=== PATIENT | male | born 1965 | race Caucasian/White ===

== ENCOUNTER 2021-02-06 05:04 | Emergency (ER) | payer OTHER, SELFPAY ==
[2021-02-06 05:11] VITALS: BP 147/83; PULSE 79; RESP 14; TEMP 36.9; O2SAT 100; BMI 40.7
--- NOTE | 2021-02-06 05:40 | CTR_ITS ---
PROCEDURE INFORMATION: Exam: CT Abdomen And Pelvis With Contrast Exam date and time: 02/06/2021 5:40 AM Age: 55 years old Clinical indication: Bloating; Abdominal pain; Generalized; Additional info: Abd pain, distension, AMS TECHNIQUE: Imaging protocol: Computed tomography of the abdomen and pelvis with contrast. Radiation optimization: All CT scans at this facility use at least one of these dose optimization techniques: automated exposure control; mA and/or kV adjustment per patient size (includes targeted exams where dose is matched to clinical indication); or iterative reconstruction. Contrast material: OMNI 300; Contrast volume: 95 ml; Contrast route: INTRAVENOUS (IV); COMPARISON: CR XR chest 1V portable [id number] 02/06/2021 6:05 AM RADIATION DOSE METRICS: Total DLP (mGy-cm): 2034.47 FINDINGS: Mediastinal space: Small hiatal hernia. Liver: Fatty liver. Gallbladder and bile ducts: Status post cholecystectomy. Pancreas: No ductal dilation. Spleen: No splenomegaly. Adrenal glands: Normal. No mass. Kidneys and ureters: Prior postsurgical changes of the left kidney. No hydronephrosis. Stomach and bowel: Minimal colonic diverticulosis without findings of diverticulitis. Minimal scattered air-fluid levels noted in nondilated loops small bowel. No abrupt transition point. There is moderate gastric distention. Appendix: The appendix is not identified. No focal inflammation in the right lower quadrant. Intraperitoneal space: No free air. No significant fluid collection. Vasculature: Atherosclerotic changes of the aorta. No aneurysm. Lymph nodes: No enlarged lymph nodes. Urinary bladder: Unremarkable as visualized. Reproductive: Unremarkable as visualized. Bones/joints: Multilevel degenerative changes. Chronic appearing left inferior pubic ramus fracture. Multilevel degenerative changes of the lumbar spine. Chronic appearing right rib fractures. Soft tissues: Unremarkable. Other findings: Examination is limited by motion artifact. CT/CT abdomen pelvis w con* [id number] IMPRESSION: Minimal scattered air-fluid levels noted in nondilated loops small bowel. No abrupt transition point. There is moderate gastric distention. Findings may be seen with gastroenteritis in the appropriate clinical context. Radiation Dose CTDIVOL = (mGy): DLP = 2034.47 (mGy-cm)
--- NOTE | 2021-02-06 05:40 | XRR_ITS ---
PROCEDURE INFORMATION: Exam: XR Chest Exam date and time: 02/06/2021 5:40 AM Age: 55 years old Clinical indication: Shortness of breath; Additional info: SOB, AMS, abd pain TECHNIQUE: Imaging protocol: XR of the chest. Views: 1 view. COMPARISON: No relevant prior studies available. FINDINGS: Lungs: No CHF/pulmonary edema. Poor inspiration somewhat limits evaluation, especially of the lung bases. 4-5 mm calcified granuloma in the right lower lung. Visible lungs otherwise appear essentially clear. Pleural spaces: No visible pneumothorax. No definite pleural fluid. Heart/Mediastinum: Heart size is probably upper range of normal. Bones/joints: No significant acute finding. Gastrointestinal tract: There appears to be some gastric distention XR/XR chest 1V portable [id number] IMPRESSION: 1. No definite CHF or pneumonia 2. Other findings discussed above.
--- NOTE | 2021-02-06 05:40 | CTR_ITS ---
PROCEDURE INFORMATION: Exam: CT Head Without Contrast Exam date and time: 02/06/2021 5:40 AM Age: 55 years old Clinical indication: Altered mental status/memory loss; Confusion or disorientation; Additional info: AMS TECHNIQUE: Imaging protocol: Computed tomography of the head without contrast. Radiation optimization: All CT scans at this facility use at least one of these dose optimization techniques: automated exposure control; mA and/or kV adjustment per patient size (includes targeted exams where dose is matched to clinical indication); or iterative reconstruction. COMPARISON: No relevant prior studies available. RADIATION DOSE METRICS: Total DLP (mGy-cm): 970.18 FINDINGS: Brain: No acute intracranial hemorrhage or mass effect. No definite acute infarct by CT. MRI could be more sensitive/specific for detection, as clinically directed. Cerebral ventricles: Ventricle size is normal for age. Paranasal sinuses: Included paranasal sinuses are essentially clear. Mastoid air cells: No significant acute finding. Bones/joints: No definite acute skull fracture. CT/CT head wo con* [id number] IMPRESSION: 1. No acute intracranial hemorrhage or mass effect. 2. No definite acute infarct by CT, see above. 3. Other findings discussed above. Radiation Dose CTDIVOL = (mGy): DLP = 970.18 (mGy-cm)
--- NOTE | 2021-02-06 05:40 | ECG_ITS ---
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 Measurements Intervals [place] Rate: 80 P: 59 OR: 168 QRS: 63 QRSD: 92 T: 34 QT: 347 QTc: 401 Interpretive Statements SINUS RHYTHM LOW QRS VOLTAGE IN PRECORDIAL LEADS [QRS DEFLECTION < 1.0 mV IN CHEST LEADS] No previous ECG available for comparison Electronically Signed On 02-06-2021 18:10:05 CDT by Alex Donato M.D. [email or web address]
[2021-02-06 05:49] LABS: Basophils # 0.1 10^3/uL (0.0-0.1); Basophils % 0.7 %; Eosinophils # 0.3 10^3/uL (0.0-0.8); Eosinophils % 2.7 %; Hematocrit 44.5 % (42.0-52.0); Hemoglobin 14.7 g/dL (11.7-16.6); Lymphocytes # 1.7 10^3/uL (0.8-4.8); Mean Corpuscular Hemoglobin 29.3 pg (28.0-34.0); Mean Corpuscular Volume 88.8 fL (80-94); Monocytes # 0.9 10^3/uL (0.2-0.9); Neutrophils # 6.92 10^3/uL (1.8-7.7); Neutrophils % 70.3 %; Nucleated Red Blood Cells % 0 %; Platelet Count 278 10^3/cmm (130-400); Red Blood Count 5.01 10^6/uL (4.1-5.3); Red Cell Distribution Width 13.7 % (12.1-15.1); White Blood Count 9.9 10^3/uL (4.0-10.0)
[2021-02-06] MEDS: sodium chloride 0.9% 1,000 ML 999 ML IV (05:58)
[2021-02-06 06:05] LABS: ABG PCO2 50.6 mmHg (35-45); ABG PH Result 7.37 (7.35-7.45); Base Excess ABG 2.8 mmol/L (-2.0-2.0); Blood Gas Allen Test Pos; Blood Gas Sample Site Radial, right; Blood Gas Sample Type Arterial; Carboxyhemoglobin 1.6 %THgb (0.4-20.1); HCO3 ABG 29.1 mmol/L (22-26); HGB O2 Sat 92.5 % (95-100); Methemoglobin 0.4 % (0.4-1.5); Oxygen Device ROOM AIR; PO2 ABG 70.2 mmHg (80.0-100.0); Total Hemoglobin 13.7 g/dL (14-18)
[2021-02-06 06:16] LABS: Alanine Aminotransferase 33 U/L (0-41); Albumin Level 4.6 g/dL (3.5-5.2); Alkaline Phosphatase 129 IU/L (40-130); Aspartate Amino Transferase 33 U/L (0-40); Blood Urea Nitrogen 23 mg/dL (6-20); Calcium 9.6 mg/dL (8.5-10.5); Carbon Dioxide 27 mmol/L (22-29); Chloride 92 mmol/L (98-107); Globulin 3.1 g/dL (1.3-4.6); Glomerular Filtration Rate 31.1 mL/min (90-130); Glucose 119 mg/dL (65-115); NT Pro B Type Natriuretic Pept 18 pg/mL (0-125); Osmolality Calculated 285 mOsm/kg (285-295); Sodium 135 mmol/L (136-145); Total Bilirubin 0.6 mg/dL (0.15-1.2); Total Protein 7.7 g/dL (6.6-8.7)
[2021-02-06 06:18] LABS: Slide Review Slide Review Perform
[2021-02-06 06:21] LABS: Ammonia 20 umol/L (16-60); Lactic Sepsis W/Reflex 2.4 mmol/L (0.5-2.2)
[2021-02-06 06:24] LABS: Anion Gap 21.2 (5-19); Potassium 5.2 mmol/L (3.5-5.1)
[2021-02-06] MEDS: iohexol 300 mg/mL 100 mL Btl IV (06:28)
[2021-02-06 06:30] LABS: D Dimer 0.38 ug/mIFEU (0-0.59)
[2021-02-06 06:46] VITALS: BP 138/77; PULSE 83; RESP 15; O2SAT 96
[2021-02-06 06:55] LABS: Alcohol Level < 10 mg/dL (0-10)
[2021-02-06 07:24] LABS: Creatine Phosphokinase 1055 U/L (39-308)
[2021-02-06 07:45] LABS: Reflex Lactate Order REFLEX LACTIC ORDERD
[2021-02-06 08:00] VITALS: BP 104/61; PULSE 72; RESP 15; O2SAT 93
[2021-02-06 08:37] LABS: Add Urine Microscopic? YES; Bacteria Urine TRACE /hpf; Bilirubin Urine Neg (Negative); Blood Urine Neg (Negative); Glucose Urine UA Norm (Normal); Hyaline Casts Urine 0-4 /lpf; Ketones Urine Negative (Negative); Leukocyte Esterase Urine 2+ (Negative); Nitrate Urine Negative (Negative); Protein Urine Neg (Negative); Specific Gravity, Urine 1.015 (1.005-1.030); Urine Appearance SL Hazy (CLEAR); Urine Color Yellow (Yellow); Urobilinogen Urine Norm (Negative); WBC Urine 15-25 /hpf (0-5); pH Urine 5 (5-7)
[2021-02-06 08:38] LABS: Add Urine Culture? Yes; Amphetamines Screen Urine Negative (Negative); Barbiturates Screen Urine Negative (Negative); Benzodiazepines Screen Urine Negative (Negative); Cocaine Screen Urine Negative (Negative); Opiate Screen Urine Positive (Negative); PCP Screen Urine Negative (Negative); THC Screen Urine Negative (Negative)
[2021-02-06 09:17] VITALS: BP 135/82; PULSE 70; RESP 14; O2SAT 94
[2021-02-06] MEDS: naloxone 0.4 mg/ml SDV IVP (09:34)
[2021-02-06] MEDS: cefTRIAXone 1,000 MG in sodium chloride 0.9% (plus) 50 ML 100 MG IV (09:34)
--- NOTE | 2021-02-06 09:49 | ED_ITS ---
HPI - Altered Mental Status General: Chief Complaint: Shortness of Breath/Dyspnea Stated Complaint: DECREASED LOC/ ABDOMINAL PAIN Time Seen by Provider: 02/06/21 05:19 History of Present Illness: HPI narrative: 55-year-old diabetic male. He presents with an alteration in his mental status, combined with vomiting. [place] He had stated that he left his BiPAP machine at home. He awoke vomiting sometime in the morning, and was very lethargic. EMS were called. They found him to be lethargic. He vomited a couple of more times. This has improved, but his lethargy remains. He answers simple questions, but falls asleep in between. MD complaint: altered mental status and decreased responsiveness Onset (ago): hour(s) Timing confirmed by: other Severity: moderate Consistency of symptoms: Waxing and Waning Context: diabetes and other Treatments prior to arrival: IV fluid and oxygen Review of Systems General: Reports: ROS unobtainable due to medical condition and ROS unobtainable due to mental status Const: Denies: fever(s) Card: Denies: chest pain Resp: Reports: dyspnea; Denies: non-productive cough GI: Reports: abdominal pain, nausea and vomiting Neuro: Reports: confusion and behavioral changes Physical Exam Const: EXAM LIMITATIONS: altered mental status GENERAL APPEARANCE: lethargic NUTRITIONAL APPEARANCE: obese ORIENTATION/CONSCIOUSNESS: Yes lethargic HENMT: COMMON NORMALS: normocephalic and atraumatic HEAD & SCALP: normocephalic and atraumatic Eye: COMMON NORMALS: Equal, round and reactive pupils present and EOMs intact bilaterally PUPIL: Yes Equal, round and reactive pupils present Chest: COMMONS NORMALS: normal inspection of the chest Resp: COMMON NORMALS: normal respiratory effort, No use of accessory muscles and percussion normal PERCUSSION: percussion normal Cardio: COMMON NORMALS: regular rate and regular rhythm RATE: regular rate RHYTHM: regular rhythm GI: INSPECTION: Yes abdominal distension PALPATION: Yes Tenderness to palpation present (GI) (Diffuse) and Yes Guarding due to palpation present (GI) Neuro: NGUYEN COMA SCALE: document GCS findings Nguyen coma scale eye opening: To sound [place] coma scale verbal response: Confused Nguyen coma scale motor response: Obey commands Nguyen coma scale total score: 13 SENSORIUM/ORIENTATION: Yes lethargic CRANIAL NERVES: Yes CN normal except as noted SPEECH: abnormal speech Details: slurred SENSORY EXAM: Yes extremities MOTOR EXAM: 5/5 motor strength present throughout Course Vital Signs: Vital signs: Vital Signs Temperature 98.5 F 02/06/21 05:11 Pulse Rate 70 02/06/21 09:17 Respiratory Rate 14 02/06/21 09:17 Blood Pressure 135/82 02/06/21 09:17 Pulse Oximetry 94 02/06/21 09:17 MDM - Altered Mental Status MDM Narrative: Medical decision making narrative: Patient has been very lethargic on exam. He awakens to voice, and answers simple questions appropriately. He then falls back asleep. He is maintaining his oxygen level on room air. ABG shows mild respiratory acidosis, but appears compensated. CBC is normal. Creatinine is 2.2. BUN is 23. Potassium 5.2. No prior labs to compare to. His alcohol is negative. Ammonia is normal. His urine tox shows positive for opiates. He has a urinary tract infection as well by urinalysis. His head CT is normal. His belly CT, done because of distention and tenderness, shows gastric distention with mild distention of loops suggestive of gastr oenteritis which fits with his history of vomiting. After urine drug screen came back positive for opiates, 0.4 mg of Narcan was given. The patient immediately woke, was appropriate, remembers all prior events, and is not confused. His voice is no longer slurred. He is received a liter of fluids. He is received Rocephin for his urinary tract infection. His hyperkalemia is not severe. He will be allowed home with oral hydration, staying cool, repeat labs in 2 days, and to hold his Dilaudid which he takes every day for the next 24 hours at least. Lab Data: Labs: Lab Results 02/06/21 02/06/21 02/06/21 Range/Units 05:30 05:30 05:30 WBC 9.9 (4.0-10.0) 10^3/ uL RBC 5.01 (4.1-5.3) 10^6/u L Hgb 14.7 (11.7-16.6) g/dL Hct 44.5 (42.0-52.0) % MCV 88.8 (80-94) fL MCH 29.3 (28.0-34.0) pg MCHC 33.0 (30.0-36.0) g/dL RDW 13.7 (12.1-15.1) % Plt Count 278 (130-400) 10^3/c mm MPV 10.0 (7.4-10.4) fL Neut % (Auto) 70.3 % Lymph % (Auto) 17.0 % [place] % (Auto) 9.0 % Eos % (Auto) 2.7 % Baso % (Auto) 0.7 % Neut # (Auto) 6.92 (1.8-7.7) 10^3/u L Lymph # (Auto) 1.7 (0.8-4.8) 10^3/u L [place] # (Auto) 0.9 (0.2-0.9) 10^3/u L Eos # (Auto) 0.3 (0.0-0.8) 10^3/u L Baso # (Auto) 0.1 (0.0-0.1) 10^3/u L Nucleated RBC % (a uto) 0 % Nucleated RBCs # 0.0 /100WBC D-Dimer (0-0.59) ug/mIFE U Specimen Type Sample Site ABG pH (7.35-7.45) ABG pCO2 (35-45) mmHg ABG pO2 (80.0-100.0) mmH g ABG HCO3 (22-26) mmol/L ABG Base Excess (-2.0-2.0) mmol/ L Felix Test Hematocrit (42-52) % Hgb O2 Saturation (95-100) % Carboxyhemoglobin (0.4-20.1) %THgb Methemoglobin (0.4-1.5) % Total Hemoglobin (14-18) g/dL O2 Delivery Device [employer] Teacher ID Sodium 135 L (136-145) mmol/L Potassium 5.2 H (3.5-5.1) mmol/L Chloride 92 L (98-107) mmol/L Carbon Dioxide 27 (22-29) mmol/L Anion Gap 21.2 H (5-19) BUN 23 H (6-20) mg/dL Creatinine 2.2 H (0.7-1.2) mg/dL GFR Calculation 31.1 L (90-130) mL/min Glucose 119 H (65-115) mg/dL Calculated Osmolal ity 285 (285-295) mOsm/k g Lactic Acid (0.5-2.2) mmol/L Lactic Acid (Sepsi s) (0.5-2.2) mmol/L Calcium 9.6 (8.5-10.5) mg/dL Total Bilirubin 0.6 (0.15-1.2) mg/dL AST 33 (0-40) U/L ALT 33 (0-41) U/L Alkaline Phosphata se 129 (40-130) IU/L Ammonia (16-60) umol/L Creatine Kinase (39-308) U/L NT-Pro-B Natriuret Pep 18 (0-125) pg/mL Total Protein 7.7 (6.6-8.7) g/dL Albumin 4.6 (3.5-5.2) g/dL Globulin 3.1 (1.3-4.6) g/dL Urine Color (Yellow) Urine Appearance (CLEAR) Urine pH (5-7) Ur Specific Gravit y (1.005-1.030) Urine Protein (Negative) Urine Glucose (UA) (Normal) Urine Ketones (Negative) Urine Blood (Negative) Urine Nitrate (Negative) Urine Bilirubin (Negative) Urine Urobilinogen (Negative) mg/dL Ur Leukocyte Lesa ase (Negative) Urine RBC (0-2) /hpf Urine WBC (0-5) /hpf Ur Squamous Epith Cells (0-5) /hpf Amorphous Sediment Urine Bacteria (NONE) /hpf Hyaline Casts /lpf Urine Opiates Scre en (Negative) ng/mL Ur Barbiturates Sc reen (Negative) ng/mL Ur Phencyclidine S crn (Negative) ng/mL Ur Amphetamines Sc reen (Negative) ng/mL U Benzodiazepines Scrn (Negative) ng/mL Urine Cocaine Scre en (Negative) ng/mL U Marijuana (THC) Screen (Negative) ng/mL Ethyl Alcohol < 10 (0-10) mg/dL 02/06/21 02/06/21 02/06/21 Range/Units 05:30 05:45 05:45 WBC (4.0-10.0) 10^3/ uL RBC (4.1-5.3) 10^6/u L Hgb (11.7-16.6) g/dL Hct (42.0-52.0) % MCV (80-94) fL MCH (28.0-34.0) pg MCHC (30.0-36.0) g/dL RDW (12.1-15.1) % Plt Count (130-400) 10^3/c mm MPV (7.4-10.4) fL Neut % (Auto) % Lymph % (Auto) % [place] % (Auto) % Eos % (Auto) % Baso % (Auto) % Neut # (Auto) (1.8-7.7) 10^3/u L Lymph # (Auto) (0.8-4.8) 10^3/u L [place] # (Auto) (0.2-0.9) 10^3/u L Eos # (Auto) (0.0-0.8) 10^3/u L Baso # (Auto) (0.0-0.1) 10^3/u L Nucleated RBC % (a uto) % Nucleated RBCs # /100WBC D-Dimer (0-0.59) ug/mIFE U Specimen Type Sample Site ABG pH (7.35-7.45) ABG pCO2 (35-45) mmHg ABG pO2 (80.0-100.0) mmH g ABG HCO3 (22-26) mmol/L ABG Base Excess (-2.0-2.0) mmol/ L Felix Test Hematocrit (42-52) % Hgb O2 Saturation (95-100) % Carboxyhemoglobin (0.4-20.1) %THgb Methemoglobin (0.4-1.5) % Total Hemoglobin (14-18) g/dL O2 Delivery Device [employer] Teacher ID Sodium (136-145) mmol/L Potassium (3.5-5.1) mmol/L Chloride (98-107) mmol/L Carbon Dioxide (22-29) mmol/L Anion Gap (5-19) BUN (6-20) mg/dL Creatinine (0.7-1.2) mg/dL GFR Calculation (90-130) mL/min Glucose (65-115) mg/dL Calculated Osmolal ity (285-295) mOsm/k g Lactic Acid 2.4 H (0.5-2.2) mmol/L Lactic Acid (Sepsi s) (0.5-2.2) mmol/L Calcium (8.5-10.5) mg/dL Total Bilirubin (0.15-1.2) mg/dL AST (0-40) U/L ALT (0-41) U/L Alkaline Phosphata se (40-130) IU/L Ammonia 20 (16-60) umol/L Creatine Kinase 1055 H* (39-308) U/L NT-Pro-B Natriuret Pep (0-125) pg/mL Total Protein (6.6-8.7) g/dL Albumin (3.5-5.2) g/dL Globulin (1.3-4.6) g/dL Urine Color (Yellow) Urine Appearance (CLEAR) Urine pH (5-7) Ur Specific Gravit y (1.005-1.030) Urine Protein (Negative) Urine Glucose (UA) (Normal) Urine Ketones (Negative) Urine Blood (Negative) Urine Nitrate (Negative) Urine Bilirubin (Negative) Urine Urobilinogen (Negative) mg/dL Ur Leukocyte Lesa ase (Negative) Urine RBC (0-2) /hpf Urine WBC (0-5) /hpf Ur Squamous Epith Cells (0-5) /hpf Amorphous Sediment Urine Bacteria (NONE) /hpf Hyaline Casts /lpf Urine Opiates Scre en (Negative) ng/mL Ur Barbiturates Sc reen (Negative) ng/mL Ur Phencyclidine S crn (Negative) ng/mL Ur Amphetamines Sc reen (Negative) ng/mL U Benzodiazepines Scrn (Negative) ng/mL Urine Cocaine Scre en (Negative) ng/mL U Marijuana (THC) Screen (Negative) ng/mL Ethyl Alcohol (0-10) mg/dL 02/06/21 02/06/21 02/06/21 Range/Units 06:00 06:00 08:03 WBC (4.0-10.0) 10^3/ uL RBC (4.1-5.3) 10^6/u L Hgb (11.7-16.6) g/dL Hct (42.0-52.0) % MCV (80-94) fL MCH (28.0-34.0) pg MCHC (30.0-36.0) g/dL RDW (12.1-15.1) % Plt Count (130-400) 10^3/c mm MPV (7.4-10.4) fL Neut % (Auto) % Lymph % (Auto) % [place] % (Auto) % Eos % (Auto) % Baso % (Auto) % Neut # (Auto) (1.8-7.7) 10^3/u L Lymph # (Auto) (0.8-4.8) 10^3/u L [place] # (Auto) (0.2-0.9) 10^3/u L Eos # (Auto) (0.0-0.8) 10^3/u L Baso # (Auto) (0.0-0.1) 10^3/u L Nucleated RBC % (a uto) % Nucleated RBCs # /100WBC D-Dimer 0.38 (0-0.59) ug/mIFE U Specimen Type Arterial Sample Site Radial, right ABG pH 7.37 (7.35-7.45) ABG pCO2 50.6 H (35-45) mmHg ABG pO2 70.2 L (80.0-100.0) mmH g ABG HCO3 29.1 H (22-26) mmol/L ABG Base Excess 2.8 H (-2.0-2.0) mmol/ L Felix Test Pos Hematocrit 42.0 (42-52) % Hgb O2 Saturation 92.5 L (95-100) % Carboxyhemoglobin 1.6 (0.4-20.1) %THgb Methemoglobin 0.4 (0.4-1.5) % Total Hemoglobin 13.7 L (14-18) g/dL O2 Delivery Device Room air [employer] Teacher ID [email or web address] Sodium (136-145) mmol/L Potassium (3.5-5.1) mmol/L Chloride (98-107) mmol/L Carbon Dioxide (22-29) mmol/L Anion Gap (5-19) BUN (6-20) mg/dL Creatinine (0.7-1.2) mg/dL GFR Calculation (90-130) mL/min Glucose (65-115) mg/dL Calculated Osmolal ity (285-295) mOsm/k g Lactic Acid (0.5-2.2) mmol/L Lactic Acid (Sepsi s) 1.0 (0.5-2.2) mmol/L Calcium (8.5-10.5) mg/dL Total Bilirubin (0.15-1.2) mg/dL AST (0-40) U/L ALT (0-41) U/L Alkaline Phosphata se (40-130) IU/L Ammonia (16-60) umol/L Creatine Kinase (39-308) U/L NT-Pro-B Natriuret Pep (0-125) pg/mL Total Protein (6.6-8.7) g/dL Albumin (3.5-5.2) g/dL Globulin (1.3-4.6) g/dL Urine Color (Yellow) Urine Appearance (CLEAR) Urine pH (5-7) Ur Specific Gravit y (1.005-1.030) Urine Protein (Negative) Urine Glucose (UA) (Normal) Urine Ketones (Negative) Urine Blood (Negative) Urine Nitrate (Negative) Urine Bilirubin (Negative) Urine Urobilinogen (Negative) mg/dL Ur Leukocyte Lesa ase (Negative) Urine RBC (0-2) /hpf Urine WBC (0-5) /hpf Ur Squamous Epith Cells (0-5) /hpf Amorphous Sediment Urine Bacteria (NONE) /hpf Hyaline Casts /lpf Urine Opiates Scre en (Negative) ng/mL Ur Barbiturates Sc reen (Negative) ng/mL Ur Phencyclidine S crn (Negative) ng/mL Ur Amphetamines Sc reen (Negative) ng/mL U Benzodiazepines Scrn (Negative) ng/mL Urine Cocaine Scre en (Negative) ng/mL U Marijuana (THC) Screen (Negative) ng/mL Ethyl Alcohol (0-10) mg/dL 02/06/21 02/06/21 Range/Units 08:15 08:15 WBC (4.0-10.0) 10^3/ uL RBC (4.1-5.3) 10^6/u L Hgb (11.7-16.6) g/dL Hct (42.0-52.0) % MCV (80-94) fL MCH (28.0-34.0) pg MCHC (30.0-36.0) g/dL RDW (12.1-15.1) % Plt Count (130-400) 10^3/c mm MPV (7.4-10.4) fL Neut % (Auto) % Lymph % (Auto) % [place] % (Auto) % Eos % (Auto) % Baso % (Auto) % Neut # (Auto) (1.8-7.7) 10^3/u L Lymph # (Auto) (0.8-4.8) 10^3/u L [place] # (Auto) (0.2-0.9) 10^3/u L Eos # (Auto) (0.0-0.8) 10^3/u L Baso # (Auto) (0.0-0.1) 10^3/u L Nucleated RBC % (a uto) % Nucleated RBCs # /100WBC D-Dimer (0-0.59) ug/mIFE U Specimen Type Sample Site ABG pH (7.35-7.45) ABG pCO2 (35-45) mmHg ABG pO2 (80.0-100.0) mmH g ABG HCO3 (22-26) mmol/L ABG Base Excess (-2.0-2.0) mmol/ L Felix Test Hematocrit (42-52) % Hgb O2 Saturation (95-100) % Carboxyhemoglobin (0.4-20.1) %THgb Methemoglobin (0.4-1.5) % Total Hemoglobin (14-18) g/dL O2 Delivery Device [employer] Teacher ID Sodium (136-145) mmol/L Potassium (3.5-5.1) mmol/L Chloride (98-107) mmol/L Carbon Dioxide (22-29) mmol/L Anion Gap (5-19) BUN (6-20) mg/dL Creatinine (0.7-1.2) mg/dL GFR Calculation (90-130) mL/min Glucose (65-115) mg/dL Calculated Osmolal ity (285-295) mOsm/k g Lactic Acid (0.5-2.2) mmol/L Lactic Acid (Sepsi s) (0.5-2.2) mmol/L Calcium (8.5-10.5) mg/dL Total Bilirubin (0.15-1.2) mg/dL AST (0-40) U/L ALT (0-41) U/L Alkaline Phosphata se (40-130) IU/L Ammonia (16-60) umol/L Creatine Kinase (39-308) U/L NT-Pro-B Natriuret Pep (0-125) pg/mL Total Protein (6.6-8.7) g/dL Albumin (3.5-5.2) g/dL Globulin (1.3-4.6) g/dL Urine Color Yellow (Yellow) Urine Appearance Sl hazy (CLEAR) Urine pH 5 (5-7) Ur Specific Gravit y 1.015 (1.005-1.030) Urine Protein Neg (Negative) Urine Glucose (UA) Norm (Normal) Urine Ketones Negative (Negative) Urine Blood Neg (Negative) Urine Nitrate Negative (Negative) Urine Bilirubin Neg (Negative) Urine Urobilinogen Norm (Negative) mg/dL Ur Leukocyte Lesa ase 2+ H (Negative) Urine RBC None (0-2) /hpf Urine WBC 15-25 H (0-5) /hpf Ur Squamous Epith Cells 5-10 H (0-5) /hpf Amorphous Sediment Not Reportable Urine Bacteria Trace (NONE) /hpf Hyaline Casts 0-4 H /lpf Urine Opiates Scre en Positive H (Negative) ng/mL Ur Barbiturates Sc reen Negative (Negative) ng/mL Ur Phencyclidine S crn Negative (Negative) ng/mL Ur Amphetamines Sc reen Negative (Negative) ng/mL U Benzodiazepines Scrn Negative (Negative) ng/mL Urine Cocaine Scre en Negative (Negative) ng/mL U Marijuana (THC) Screen Negative (Negative) ng/mL Ethyl Alcohol (0-10) mg/dL Discharge Plan Discharge Patient Disposition: Home Clinical Impression: Acute kidney injury, Acute dehydration Urinary tract infection Qualifiers: Urinary tract infection type: acute cystitis Hematuria presence: without hematuria Qualified Code(s): N30.00 - Acute cystitis without hematuria Condition: Stable Prescriptions: New Zofran 4 mg tablet 4 mg PO Q6H PRN (Reason: nausea and vomiting) Qty: 10 RF: 0 cefdinir 300 mg capsule 300 mg PO BID 10 Days Qty: 20 RF: 0 Discharge Orders: Discharge ED (Routine); Ordered 02/06/21 Ordered By: Anjel Conti Discharge Diet: Clear Liquid Discharge Activity: Limit activity as instructed Patient Instructions: Dehydration (ED), Acute Kidney Injury (GEN), Urinary Tra ct Infection in Men (ED) Activity Restrictions/Additional Instructions: Stay indoors in the air conditioning. Drink plenty of noncaffeinated, nonalcoholic liquids for the next 24 hours. Do not take your pain medication for at least 24 hours. Antibiotics as directed. Use the other medication as needed for nausea. You should have your labs repeated in 2 days time to ensure your kidney function is improving. Return for worsening mental status, vomiting liquids or medications, weakness, fever greater than 100, any other concerning symptoms. 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
[2021-02-06 10:19] VITALS: BP 148/88; PULSE 73; RESP 15; O2SAT 95
[2021-02-06 14:09] LABS: Glucose Point of Care 151 mg/dL (70-110)
== END 2021-02-06 10:21 | disposition home or self-care (01) ==
PROVIDERS: Emergency Provider Emergency Medicine
DX: N30.00 Acute cystitis without hematuria (principal); E86.0 Dehydration; N17.9 Acute kidney failure, unspecified; E87.2 Acidosis; E87.5 Hyperkalemia; Z79.891 Long term (current) use of opiate analgesic
CPT/HCPCS: 36416; 36600; 70450; 71045; 74177; 80053; 80306; 80307; 81001; 82140; 82550; 82805; 82962; 83605; 83880; 85025; 85378; 87086; 93005; 96365; 96375; 99284; J0696; J2310; J7030; Q9967